=== PATIENT | female | born 1970 | race Caucasian/White ===

== ENCOUNTER → 2017-10-31 | Outpatient (CLI) | payer OTHER ==
[~2017-10-31] MED LIST: AMITRIPTYLINE H10 M3 PO; AMLODIPINE BESY10 MG PO; ASPIR 8181 MG PO; BENICAR HCT 401 EACH PO; BENICAR40 MG PO; BENTYL20 MG PO; BIOTIN PLUS KE1 EACH PO; CELEBREX 200 M200 M1 PO; CIPROFLOXACIN500 M3 PO; FLEXERIL PO; HYDROCHLOROTHIA25 M2 PO; LOPRESSOR25 PO; NAPROSYN500 MG PO; NORCO 5-325 TA1 EACH PO; PHENERGAN 25 MG25 M1 PO; SYNTHROID50 MCG PO; TRAMADOL 50 MG50 MG PO; ZOFRAN4 MG PO; [UNRECOGNIZED DRUG - OTHER] PO
--- NOTE | 2017-11-01 08:10 | PAINCON ---
[address] [address] PAIN MANAGEMENT CONSULTATION Name: MORALES BRADFORD [id number] Admission: 10/31/17 Attend Phys: Valorie Burch MD Discharge: Date of : 70 Report #: [id number] THIS REPORT FOR: //name// CC: Valorie Shannon DO DATE OF SERVICE: 10/31/2017 FOLLOWUP COMPLAINT: "Here for epidural steroid injection." FOLLOWUP HISTORY: The patient is a 47-year-old female who has been seen in the pain clinic because of pain and discomfort, which she has been experiencing, which is radiating down into her left leg. She notes pins and needles in this area. She has returned today for treatment. She had injections about 15 years ago. She did slip and fall at home this year. She has been precertified by her insurance company to proceed with an epidural steroid injection given that she is experiencing numbness, weakness in her left leg and has had lumbar radiculopathy in the past. PHYSICAL EXAMINATION: Blood pressure 147/87, heart rate 83, respiratory rate 16, room air saturation 96%. Height 5 feet 6 inches, weight 259 pounds, BMI is 41, temperature 98.3. The patient has pain and discomfort in the lower portion of her back. She is having pain as radiating down into her leg. There is numbness, weakness involving the left leg. She has muscle strength is judged to be 5/5 in the major muscle groups in the lower extremity. Left leg strength is 5/4. She is walking with an antalgic gait favoring her left leg. Straight leg raise positive. She notes some decreased sensation to light touch, numbness and tingling along the left leg. IMPRESSION: 1. Lumbar radiculopathy with pain radiating down to the left leg with pins and needles in the L5-S1 distribution. 2. Essential hypertension. 3. Hypothyroidism. 4. Generalized osteoarthrosis involving multiple sites. 5. Obesity, BMI is 41. 6. Depression. RECOMMENDATIONS: We discussed treatment options with the patient. Risks and benefits of an epidural steroid injection were again reviewed. Possible complications were discussed. They include but are not limited to infection, increased muscle soreness, headache, bleeding, nerve damage, and spinal headache. PROCEDURE NOTE: The patient was placed in the prone [place] [address] PAIN MANAGEMENT CONSULTATION Name: MORALES BRADFORD Room: [facility]#: [id number] Admission: 10/31/17 Attend Phys: Valorie Burch MD Discharge: Date of : 70 Report #: [id number] sterilely prepped with a Betadine solution. 0.25% bupivacaine was infiltrated in the area of the L5-S1 space. Fluoroscopy was used. A 5-inch Tuohy needle was then advanced through the prenumbed area with 0.25% bupivacaine. After appropriate placement, anterior and posterior views confirming appropriate placement. A total of 80 mg Depo-Medrol, 40 mg triamcinolone and 2 mL of 0.25% bupivacaine was injected. Needle was removed. The patient's back was cleaned, and a bandage placed. She was then taken to the recovery room where she remained for an appropriate amount of time. She will follow up in the future as needed. We would like to thank you for letting us participate in her care. We hope she continues to improve. She will continue with Naprosyn, tramadol, and Flexeril to help with her pain and discomfort. <ELECTRONICALLY SIGNED> By: Valorie Burch MD 11/01/17 0810 1313 [id number]. Gregorio Burch MD /[facility]
== END | disposition home or self-care (01) ==
LOC: M.PC 01:36
DX: M54.16 Radiculopathy, lumbar region (principal); I10 Essential (primary) hypertension; E03.9 Hypothyroidism, unspecified; M19.90 Unspecified osteoarthritis, unspecified site; F32.89 Other specified depressive episodes; E66.09 Other obesity due to excess calories; Z68.41 Body mass index [BMI] 40.0-44.9, adult; Z79.82 Long term (current) use of aspirin; Z79.899 Other long term (current) drug therapy; Z98.890 Other specified postprocedural states

== ENCOUNTER → 2018-02-20 | Outpatient (CLI) | payer OTHER ==
--- NOTE | 2018-02-25 08:16 | PAINCON ---
[place] [address] PAIN MANAGEMENT CONSULTATION Name: SUZETTEMORALES Erick Room: [facility] Nirali#: [id number] Admission: 02/20/18 Attend Phys: Valorie Burch MD Discharge: Date of : 70 Report #: [id number] THIS REPORT FOR: //name// CC: Valorie Shannon DO DATE OF SERVICE: 02/20/2018 PRIMARY CARE PHYSICIAN: Lenny Shannon DO. FOLLOWUP COMPLAINT: The epidural injection in October was helpful. Now, the pain is started to come back. FOLLOWUP HISTORY: The patient is a 47-year-old female who has been seen in the Pain Clinic because of lumbar radiculopathy. She underwent an epidural steroid injection because of pain and discomfort, which she has been experiencing in her low back and radiating down into her left leg. She has noted a return of pain and discomfort with some pins and needle sensation in the posterior portion radiating down into her leg. She slipped and fell last year, which seems to be the nidus for starting this discomfort. She feels that Naprosyn and tramadol are helpful. She also has Celebrex, which she has been taking. ALLERGIES: No known drug allergies. CURRENT MEDICATIONS: Amitriptyline 10 mg p.o. p.r.n., aspirin 81 mg daily, biotin/keratin, Celebrex 200 mg daily, Flexeril 10 mg daily, hydrochlorothiazide 25 mg daily, Synthroid 50 mcg, metoprolol 25 mg b.i.d., Naprosyn 500 mg b.i.d., Benicar 40 mg daily, and tramadol 50 mg q. 6 hours p.r.n. PAIN CLINIC ASSESSMENT GENERAL: The patient is not being treated for osteoarthritis or rheumatoid arthritis. Height 5 feet 6 inches, weight 245 pounds, BMI is 39. VITAL SIGNS: Blood pressure 135/69, heart rate 62, respiratory rate 16, room air saturation 94%, temperature 98.1. Pain intensity 02/11. Fall risk. The patient has not fallen last 3 months. Blood thinner. The patient is not on a blood thinner. Hypertension. The patient is being treated for hypertension. Opioid medicines greater than 6 weeks. The patient is not on an opioid contract. Risk assessment tool. Functional assessment tool. Recreational drug use. Denies recreational drug use. Tobacco: Denies use of tobacco. Alcohol: The patient rarely [place] [address] PAIN MANAGEMENT CONSULTATION Name: MORALES BRADFORD Room: [facility]#: [id number] Admission: 02/20/18 Attend Phys: Valorie Burch MD Discharge: Date of : 70 Report #: [id number] PHYSICAL EXAMINATION: GENERAL: The patient is a well-developed, somewhat obese white female. She appears her stated age. She is alert and oriented x 3. Affect is appropriate. Speech is fluent. HEENT: Normocephalic, atraumatic. Extraocular eye muscles intact. Sclerae is nonicteric. Hearing is within normal limits. Mucous membranes are moist. NECK: Without adenopathy or JVD. Good range of motion. HEART: Regular rate, normal S1, S2. CHEST: Clear to auscultation without rales or rhonchi. ABDOMEN: Protuberant. EXTREMITIES: Upper extremity muscle strength is judged to be 5/5 for the major muscle groups in the upper extremity with normal sensorium and muscle strength. Lower extremity exam, the patient has positive straight leg raise on the left. Has pain radiating down the posterior L5-S1 distribution on her left leg. Walks with an antalgic gait favoring her left leg. IMPRESSION: 1. Lumbar radiculopathy with pain radiating down the left leg with pins and needle sensation at L5-S1 distribution. 2. Essential hypertension. 3. Hypothyroidism. 4. Generalized osteoarthritis involving multiple sites. 5. Obesity, body mass index 39. 6. Depression. RECOMMENDATIONS: We discussed treatment options with the patient. Risks and benefits of an epidural steroid injection were again reviewed. Possible complication of the procedure were discussed. The patient is taking two nonsteroidal anti-inflammatory medications. She is taking Celebrex as well as Naprosyn. We have advised her to take either one or the other, but not both concomitantly. We discussed the possible GI/renal complications from using these medications too often. The patient would like to proceed with an epidural steroid injection. We have discussed the possible complications, which include but are not limited to infection, increased muscle soreness, headache, bleeding, nerve damage, spinal headache. The patient elects to proceed. PROCEDURE NOTE: The patient was placed in the prone position. Fluoroscopy was used to identify the AP as well as the lateral viewing of the L5-S1 nerve area. The area was sterilely prepped with a Betadine solution. This was allowed to dry. A 25-gauge needle was then advanced into this area and infiltrated with 0.25% bupivacaine. A 17-gauge Tuohy with loss of resistance technique was used to gain access to the epidural space. There was no CSF, heme or paresthesia. A total of 80 mg Depo-Medrol, 40 mg triamcinolone and 2 mL of 0.25% bupivacaine was injected. The patient tolerated the procedure well. There were no complications. She remained in the Pain Clinic for an appropriate amount of [facility] [address] [place] [address] PAIN MANAGEMENT CONSULTATION Name: SUZETTEMORALES Erick Room: [facility]#: [id number] Admission: 02/20/18 Attend Phys: Valorie Burch MD Discharge: Date of : 70 Report #: [id number] time. She will call us if she has any problems in the interim. We would like to thank you for letting us participate in her care. We hope she continues to improve. A total of 12 seconds fluoroscopy time was used. <ELECTRONICALLY SIGNED> By: Valorie Burch MD 02/25/18 0816 1351 0211N. Gregorio Burch MD /[facility]
== END | disposition home or self-care (01) ==
LOC: M.PC 03:27
DX: M54.16 Radiculopathy, lumbar region (principal); I10 Essential (primary) hypertension; E03.9 Hypothyroidism, unspecified; M19.90 Unspecified osteoarthritis, unspecified site; E66.09 Other obesity due to excess calories; Z68.39 Body mass index [BMI] 39.0-39.9, adult; F32.9 Major depressive disorder, single episode, unspecified; Z79.899 Other long term (current) drug therapy; Z79.82 Long term (current) use of aspirin; Z98.890 Other specified postprocedural states

== ENCOUNTER → 2018-07-28 | Outpatient (CLI) | payer OTHER | LOC: M.RAD 09:00 | DX: K51.90 Ulcerative colitis, unspecified, without complications (principal); I10 Essential (primary) hypertension; K60.3 Anal fistula; Z87.19 Personal history of other diseases of the digestive system ==

== ENCOUNTER → 2019-09-21 | Outpatient (CLI) | payer OTHER | LOC: M.RAD 11:10 | DX: Z12.31 Encounter for screening mammogram for malignant neoplasm of breast (principal) ==